=== PATIENT | female | born 1990 | race Caucasian/White ===

== ENCOUNTER 2024-02-24 00:09 | Emergency (ER) | payer BC, OTHER ==
[~2024-02-24] VITALS: Ht 172.7 cm; Wt 68.4 kg
[2024-02-24 00:58] LABS: BASOPHILS % (AUTO) 0.4 % (0-1); EOSINOPHILS % (AUTO) 0.4 % (0-6); HEMATOCRIT 40.7 % (35.0-45.0); LYMPHOCYTES # (AUTO) 1.2 X10'3 (1.1-4.8); LYMPHOCYTES % (AUTO) 15.1 % (21-51); MEAN CORPUSCULAR HEMOGLOBIN 31.1 PG (27.0-31.0); MEAN CORPUSCULAR HGB CONC 34.4 g/dL (33.0-36.5); MEAN CORPUSCULAR VOLUME 90.5 FL (78-98); MEAN PLATELET VOLUME 9.1 FL (7.4-10.4); MONOCYTES # (AUTO) 0.4 X10'3 (0-0.9); MONOCYTES % (AUTO) 4.7 % (2-12); NEUTROPHILS # (AUTO) 6.3 X10'3 (1.8-7.7); NEUTROPHILS % (AUTO) 79.4 % (42-75); PLATELET COUNT 208 X10'3 (140-440); RED CELL DISTRIBUTION WIDTH 12.6 % (11.5-14.5)
[2024-02-24 01:01] LABS: URINE HCG NEGATIVE (NEG)
[2024-02-24 01:08] LABS: BILIRUBIN,URINE NEGATIVE (Neg); CLARITY,URINE CLEAR (Clear); COLOR,URINE YELLOW (Yellow); GLUCOSE, URINE NEGATIVE (Neg); KETONES,URINE 15 mg/dl (Neg); LEUKOCYTE ESTERASE ,URINE NEGATIVE (Neg); NITRITES, URINE NEGATIVE (Neg); OCCULT BLOOD,URINE SMALL (Neg); PH,URINE 6.5 (4.8-8.0); PROTEIN,URINE NEGATIVE (Neg); UROBILINOGEN,URINE 0.2 E.U/dL (0.2-1.0)
[2024-02-24 01:11] LABS: UA COLLECTION TYPE CLN CATCH MIDSTREAM
[2024-02-24] MEDS ORDERED: iohexol 300mg/ml 100ml inj. ONE (01:13)
[2024-02-24] MEDS: normal saline 500ml IV soln 500 ML IV ONE (01:16)
[2024-02-24] MEDS: ondansetron/PF 4mg/2ml inj IV ONE (01:16)
[2024-02-24 01:17] LABS: ALANINE AMINOTRANSFERASE 17 U/L (12-78); ALBUMIN 3.4 G/DL (3.4-5.0); ALBUMIN/GLOBULIN RATIO 0.8 (1.1-1.5); ALKALINE PHOSPHATASE 57 IU/L (46-116); ANION GAP 11 (8-16); ASPARTATE AMINO TRANSFERASE 14 U/L (10-37); BILIRUBIN,TOTAL 0.6 MG/DL (0.1-1.0); BLOOD UREA NITROGEN 4 MG/DL (7-18); BUN/CREATININE RATIO 6.3 (10.0-20.0); CALCIUM 8.9 MG/DL (8.5-10.1); CHLORIDE 103 MMOL/L (99-107); CREATININE 0.63 MG/DL (0.40-0.90); GLUCOSE 93 MG/DL (70-104); LIPASE 35 U/L (16-77); POTASSIUM 3.8 MMOL/L (3.5-5.1); SODIUM 138 MMOL/L (135-145); TOTAL CARBON DIOXIDE 24.5 MMOL/L (24-32); TOTAL PROTEIN 7.6 G/DL (6.4-8.2); eCRCL 131 ML/MIN; eGFR > 90 ML/MIN
[2024-02-24] MEDS: morphine 4 MG/ML inj SYRINge IV ONE (01:17)
[2024-02-24 01:22] LABS: WBC,URINE 0-4 /HPF (0-4)
[2024-02-24 01:23] LABS: BACTERIA,URINE FEW /HPF (Neg); MUCUS STRANDS FEW /LPF (Neg); SQUAMOUS EPITHELIAL CELL,UR FEW /LPF (FEW)
[2024-02-24] MEDS ORDERED: ONDA-243 PO (03:24)
[2024-02-24] MEDS ORDERED: DICY20TA17 PO (03:24)
[2024-02-24] MEDS ORDERED: AMOX-117 PO (03:24)
[2024-02-24] MEDS: amox tr/potassium clavulanate 875/125mg TAB PO ONE (03:38)
[2024-02-24] MEDS: acetaminophen 325mg tablet PO ONE (03:38)
[2024-02-24] MEDS: dicyclomine 10 MG capsule PO ONE (03:45)
[2024-02-24 03:50] VITALS: BP 127/64; PULSE 87; RESP 16; TEMP 98.2; O2SAT 95
== END 2024-02-24 03:51 | disposition home or self-care (01) ==
LOC: ER 00:12
DX: K52.89 Other specified noninfective gastroenteritis and colitis (principal); F15.90 Other stimulant use, unspecified, uncomplicated; Z72.89 Other problems related to lifestyle; Z79.899 Other long term (current) drug therapy
CPT/HCPCS: 36415; 74177; 80053; 81001; 81025; 83690; 85025; 96361; 96374; 96375; 99285; J2270; J2405; J7040; Q9967